=== PATIENT | male | born 1960 | race Two or more races ===

== ENCOUNTER 2016-10-27 11:38 | Inpatient (IN) | payer MEDICARE, MEDICAID ==
[~2016-10-27] VITALS: Ht 167.6 cm; Wt 83.0 kg
[~2016-10-27 11:38] MED LIST: CEPH-570 PO; CLON2TAB4 PO; IBUP-1955 PO; LACT1CAP72 PO; LEVE250T2 PO; LISI-603 PO; Naproxen PO
[2016-10-27 11:57] LABS: BASOPHILS # (AUTO) 0.1 /CMM (0.0-0.2); BASOPHILS % (AUTO) 0.7 % (0.0-2.0); DIFF TOTAL % 100 %; EOSINOPHILS # (AUTO) 0.2 /CMM (0.0-0.7); EOSINOPHILS % (AUTO) 2.4 % (0.0-6.0); HEMATOCRIT 45 % (39-51); HEMOGLOBIN 14.4 g/dL (13.5-17.5); LYMPHOCYTES # (AUTO) 2.2 /CMM (0.8-4.8); MEAN CORPUSCULAR HEMOGLOBIN 29 PG (26.0-33.0); MEAN CORPUSCULAR HGB CONC 32 g/dl (31.0-36.0); MEAN CORPUSCULAR VOLUME 90 fL (80-96); MONOCYTES # (AUTO) 0.4 /CMM (0.1-1.30); MONOCYTES % (AUTO) 5.5 % (2.0-12.0); NEUTROPHILS # (AUTO) 4.4 /CMM (1.8-8.9); NEUTROPHILS % (AUTO) 61.4 % (43.0-81.0); PLATELET COUNT (AUTO) 265 /CMM (150-450); RED BLOOD CELL COUNT(AUTO) 5.03 MIL/uL (4.5-6.0); WHITE BLOOD COUNT (AUTO) 7.3 K/uL (4.3-11.0)
[2016-10-27] MEDS ORDERED: IV NS 0.9% 500 ML BAG IV ONE (12:00)
[2016-10-27] MEDS ORDERED: IV NS 0.9% 500 ML IV ONE (12:04)
[2016-10-27] MEDS ORDERED: IV SET PRIMARY 1 EA INFUS.SET MC ONE (12:04)
[2016-10-27 12:09] LABS: ANION GAP 14 (5-14); CARBON DIOXIDE 26 mmol/L (21-32); CHLORIDE 105 mmol/L (98-107); CREATININE 1.1 mg/dL (0.6-1.3); GFR 69 mL/min (>60); GLUCOSE 111 mg/dL (74-106); SODIUM SERUM 141 mmol/L (136-145); UREA NITROGEN, BLOOD 17 mg/dL (7-18)
[2016-10-27 12:12] LABS: INR 0.93 (0.87-1.13); PROTHROMBIN TIME 9.8 SECS (9.5-12.7)
[2016-10-27 12:17] LABS: TROPONIN I < 0.017 ng/mL (0.00-0.056)
[2016-10-27] MEDS ORDERED: CITA40TA22 PO (12:24)
[2016-10-27] MEDS ORDERED: LISI-657 PO (12:24)
[2016-10-27] MEDS ORDERED: HYDR-552 PO (12:26)
[2016-10-27] MEDS ORDERED: ASPIRIN 325 MG TABLET ONE (13:15)
[2016-10-27] MEDS ORDERED: ASPIRIN 325 MG TABLET PO SCH (13:30)
[2016-10-27] MEDS ORDERED: HYDROCODONE/APAP 5/325MG 1 EACH TABLET PO PRN (14:00)
[2016-10-27] MEDS ORDERED: ZOLPIDEM TARTRATE 5 MG TABLET PO PRN (14:00)
[2016-10-27] MEDS ORDERED: ONDANSETRON HCL/PF 4 MG/2 ML VIAL IVP PRN (14:00)
[2016-10-27] MEDS ORDERED: ACETAMINOPHEN 325 MG TABLET PO PRN (14:00)
[2016-10-27] MEDS ORDERED: MAG HYDROX/AL HYDROX/SIMETH 30 ML UDC PO PRN (14:00)
[2016-10-27] MEDS ORDERED: MAGNESIUM HYDROXIDE 30 ML UDC PO PRN (14:00)
[2016-10-27] MEDS ORDERED: Z GUARD REMEDY 2 OZ OINT TP PRN (14:00)
[2016-10-27] MEDS ORDERED: IV SET PRIMARY PUMP SET 1 EA INFUS.SET MC ONE (14:23)
[2016-10-27] MEDS: IV NS 0.9% 1,000 ML IV PRN (14:29)
[2016-10-27 14:30] VITALS: BP 133/85
[2016-10-27] MEDS: ENOXAPARIN SODIUM 40 MG/0.4 ML DISP.SYRIN SQ SCH (14:38)
[2016-10-27 16:00] VITALS: BP 137/76
[2016-10-27] MEDS: LISINOPRIL (10MG) 10 MG TABLET PO SCH (16:23)
[2016-10-27] MEDS: clonazePAM 1 MG TABLET PO SCH (16:23)
[2016-10-27 20:00] VITALS: BP 104/68
[2016-10-27 20:29] VITALS: BP 104/68
[2016-10-27] MEDS: LEVETIRACETAM (250 MG) 250 MG TABLET PO SCH (20:57)
[2016-10-28] VITALS: BP 105/65
[2016-10-28 04:00] VITALS: BP 110/65
[2016-10-28 06:53] VITALS: BP 107/62
[2016-10-28 06:54] LABS: BASOPHILS % (AUTO) 0.7 % (0.0-2.0); DIFF TOTAL % 100 %; EOSINOPHILS # (AUTO) 0.2 /CMM (0.0-0.7); HEMATOCRIT 38 % (39-51); LYMPHOCYTES # (AUTO) 2.6 /CMM (0.8-4.8); LYMPHOCYTES % (AUTO) 45.5 % (20.0-44.0); MEAN CORPUSCULAR HEMOGLOBIN 30 PG (26.0-33.0); MEAN CORPUSCULAR HGB CONC 34 g/dl (31.0-36.0); MEAN CORPUSCULAR VOLUME 88 fL (80-96); MONOCYTES # (AUTO) 0.4 /CMM (0.1-1.30); MONOCYTES % (AUTO) 7.3 % (2.0-12.0); NEUTROPHILS # (AUTO) 2.5 /CMM (1.8-8.9); NEUTROPHILS % (AUTO) 42.5 % (43.0-81.0); PLATELET COUNT (AUTO) 206 /CMM (150-450); RED BLOOD CELL COUNT(AUTO) 4.35 MIL/uL (4.5-6.0); WHITE BLOOD COUNT (AUTO) 5.8 K/uL (4.3-11.0)
[2016-10-28 07:09] LABS: TROPONIN I < 0.017 ng/mL (0.00-0.056)
[2016-10-28 07:12] LABS: ANION GAP 11 (5-14); CALCIUM, SERUM 8.1 mg/dL (8.5-10.1); CARBON DIOXIDE 27 mmol/L (21-32); CHLORIDE 105 mmol/L (98-107); CREATININE 1.1 mg/dL (0.6-1.3); GFR 69 mL/min (>60); GLUCOSE 94 mg/dL (74-106); PHOSPHORUS 3.6 mg/dL (2.5-4.9); POTASSIUM 4.1 mmol/L (3.5-5.1); SODIUM SERUM 139 mmol/L (136-145); UREA NITROGEN, BLOOD 21 mg/dL (7-18)
[2016-10-28 08:00] VITALS: BP 104/69
[2016-10-28] MEDS: clonazePAM 1 MG TABLET PO SCH ×2 (08:37→16:23)
[2016-10-28] MEDS: LEVETIRACETAM (250 MG) 250 MG TABLET PO SCH ×2 (08:37→21:55)
[2016-10-28] MEDS: PANTOPRAZOLE 40 MG TABLET.DR PO SCH (08:37)
[2016-10-28] MEDS: ATORVASTATIN 10 MG TABLET PO SCH (08:38)
[2016-10-28] MEDS: ASPIRIN 81 MG TAB.CHEW PO SCH (08:38)
[2016-10-28] MEDS: ENOXAPARIN SODIUM 40 MG/0.4 ML DISP.SYRIN SQ SCH (08:38)
[2016-10-28] MEDS: LACTOBACILLUS RHAMNOSUS GG 1 EACH CAP.SPRINK PO SCH (08:39)
[2016-10-28] MEDS: CARVEDILOL 6.25 MG TABLET PO SCH ×2 (08:39→21:56)
[2016-10-28] MEDS: CITALOPRAM HYDROBROMIDE 20 MG TABLET PO SCH (08:39)
[2016-10-28] MEDS: LISINOPRIL (10MG) 10 MG TABLET PO SCH ×2 (08:40→16:24)
[2016-10-28 10:01] LABS: CHOLESTEROL 192 mg/dL (<200); HDL CHOLESTEROL 42 mg/dL (40-60); LDL 107 mg/dL (0-99); TRIGLYCERIDES 366 mg/dL (30-150)
[2016-10-28 16:00] VITALS: BP 109/70
[2016-10-28] MEDS: IV NS 0.9% 1,000 ML IV PRN (19:14)
[2016-10-28 20:00] VITALS: BP 129/76
[2016-10-29] MEDS: PANTOPRAZOLE 40 MG TABLET.DR PO SCH (07:30)
[2016-10-29 07:55] LABS: CALCIUM, SERUM 8.9 mg/dL (8.5-10.1); PHOSPHORUS 3.2 mg/dL (2.5-4.9); POTASSIUM 4.3 mmol/L (3.5-5.1)
[2016-10-29 08:00] VITALS: BP 119/71
[2016-10-29 08:02] LABS: BASOPHILS % (AUTO) 0.5 % (0.0-2.0); DIFF TOTAL % 100 %; EOSINOPHILS # (AUTO) 0.3 /CMM (0.0-0.7); EOSINOPHILS % (AUTO) 4.5 % (0.0-6.0); HEMATOCRIT 42 % (39-51); HEMOGLOBIN 14.3 g/dL (13.5-17.5); LYMPHOCYTES % (AUTO) 35.2 % (20.0-44.0); MEAN CORPUSCULAR HEMOGLOBIN 30 PG (26.0-33.0); MEAN CORPUSCULAR HGB CONC 34 g/dl (31.0-36.0); MEAN CORPUSCULAR VOLUME 88 fL (80-96); MONOCYTES # (AUTO) 0.5 /CMM (0.1-1.30); MONOCYTES % (AUTO) 8.9 % (2.0-12.0); NEUTROPHILS % (AUTO) 50.9 % (43.0-81.0); PLATELET COUNT (AUTO) 216 /CMM (150-450); RED BLOOD CELL COUNT(AUTO) 4.79 MIL/uL (4.5-6.0); WHITE BLOOD COUNT (AUTO) 5.8 K/uL (4.3-11.0)
[2016-10-29] MEDS ORDERED: REGADENOSON 0.4 MG/5 ML DISP.SYRIN IVP ONE (09:00)
[2016-10-29] MEDS: clonazePAM 1 MG TABLET PO SCH ×2 (10:18→17:22)
[2016-10-29] MEDS: CITALOPRAM HYDROBROMIDE 20 MG TABLET PO SCH (10:18)
[2016-10-29] MEDS: ATORVASTATIN 10 MG TABLET PO SCH (10:18)
[2016-10-29] MEDS: LISINOPRIL (10MG) 10 MG TABLET PO SCH ×2 (10:19→17:22)
[2016-10-29] MEDS: LACTOBACILLUS RHAMNOSUS GG 1 EACH CAP.SPRINK PO SCH (10:19)
[2016-10-29] MEDS: ASPIRIN 81 MG TAB.CHEW PO SCH (10:19)
[2016-10-29] MEDS: LEVETIRACETAM (250 MG) 250 MG TABLET PO SCH ×2 (10:19→21:51)
[2016-10-29] MEDS: CARVEDILOL 6.25 MG TABLET PO SCH ×2 (10:20→21:51)
[2016-10-29] MEDS: ENOXAPARIN SODIUM 40 MG/0.4 ML DISP.SYRIN SQ SCH (10:21)
[2016-10-29 16:07] VITALS: BP 115/59
[2016-10-29 18:00] VITALS: BP 115/59
[2016-10-29 20:00] VITALS: BP 100/56
[2016-10-30 08:00] VITALS: BP 113/73
[2016-10-30] MEDS: ATORVASTATIN 10 MG TABLET PO SCH (09:00)
[2016-10-30] MEDS: ENOXAPARIN SODIUM 40 MG/0.4 ML DISP.SYRIN SQ SCH (10:08)
[2016-10-30] MEDS: CARVEDILOL 6.25 MG TABLET PO SCH (10:14)
[2016-10-30] MEDS: LACTOBACILLUS RHAMNOSUS GG 1 EACH CAP.SPRINK PO SCH (10:15)
[2016-10-30] MEDS: ASPIRIN 81 MG TAB.CHEW PO SCH (10:15)
[2016-10-30 10:16] VITALS: BP 113/74
[2016-10-30] MEDS: CITALOPRAM HYDROBROMIDE 20 MG TABLET PO SCH (10:16)
[2016-10-30] MEDS: LISINOPRIL (10MG) 10 MG TABLET PO SCH (10:16)
[2016-10-30] MEDS: clonazePAM 1 MG TABLET PO SCH (10:17)
[2016-10-30] MEDS: LEVETIRACETAM (250 MG) 250 MG TABLET PO SCH (10:18)
[2016-10-30] MEDS: PANTOPRAZOLE 40 MG TABLET.DR PO SCH (10:19)
[2016-10-30] MEDS ORDERED: MAGN400O6 PO (13:57)
[2016-10-30] MEDS ORDERED: MAG30ORA PO (13:57)
[2016-10-30] MEDS ORDERED: PANT40TA4 PO (13:57)
[2016-10-30] MEDS ORDERED: LACT1CAP72 PO (13:57)
[2016-10-30] MEDS ORDERED: ASPI81TA2 PO (13:57)
[2016-10-30] MEDS ORDERED: ZOLP5TAB7 PO (13:57)
[2016-10-30] MEDS ORDERED: CLON2TAB4 PO (13:57)
[2016-10-30] MEDS ORDERED: CARV6.252 PO (13:57)
[2016-10-30] MEDS ORDERED: ALLA266C2 TP (13:57)
[2016-10-30] MEDS ORDERED: ATOR10TA PO (13:57)
[2016-10-30] MEDS ORDERED: ACET-868 PO (13:57)
[2016-10-30] MEDS ORDERED: LEVE250T2 PO (13:57)
== END 2016-10-30 13:21 | DRG 206 ==
LOC: ER 11:41 → TELE 13:05 → MED 10-28 12:00
PROVIDERS: ADMIT Internal Medicine; ATTEND Internal Medicine
DX: M94.0 Chondrocostal junction syndrome [Tietze] (principal); R07.9 Chest pain, unspecified; E78.5 Hyperlipidemia, unspecified; G40.909 Epilepsy, unspecified, not intractable, without status epilepticus; F32.9 Major depressive disorder, single episode, unspecified; I10 Essential (primary) hypertension; M19.90 Unspecified osteoarthritis, unspecified site; K21.9 Gastro-esophageal reflux disease without esophagitis; F41.9 Anxiety disorder, unspecified; F41.1 Generalized anxiety disorder; F10.20 Alcohol dependence, uncomplicated
CPT/HCPCS: 36415; 70450-TC; 71010-TC; 80048-TC; 80061-TC; 83735-TC; 84100-TC; 84484-TC; 85025-TC; 85730-TC; 87081-TC; 87400; 93307-TC; 97001-TC; A4606; A9502; J1650; J2785; J7030; J7040; Z7610

== ENCOUNTER 2016-10-30 13:48 | Inpatient (IN) | payer MEDICARE, MEDICAID ==
[~2016-10-30] VITALS: Ht 165.1 cm; Wt 82.6 kg
[~2016-10-30 13:48] MED LIST changes: -CEPH-570 PO; +CITA40TA22 PO; +HYDR-552 PO; -LISI-603 PO; +LISI-657 PO; -Naproxen PO
[2016-10-30] MEDS ORDERED: MAGN400O6 PO (13:57)
[2016-10-30] MEDS ORDERED: LEVE250T2 PO (13:57)
[2016-10-30] MEDS ORDERED: PANT40TA4 PO (13:57)
[2016-10-30] MEDS ORDERED: LACT1CAP72 PO (13:57)
[2016-10-30] MEDS ORDERED: ATOR10TA PO (13:57)
[2016-10-30] MEDS ORDERED: ALLA266C2 TP (13:57)
[2016-10-30] MEDS ORDERED: CLON2TAB4 PO (13:57)
[2016-10-30] MEDS ORDERED: CARV6.252 PO (13:57)
[2016-10-30] MEDS ORDERED: ACET-868 PO (13:57)
[2016-10-30] MEDS ORDERED: MAG30ORA PO (13:57)
[2016-10-30] MEDS ORDERED: ZOLP5TAB7 PO (13:57)
[2016-10-30] MEDS ORDERED: ASPI81TA2 PO (13:57)
[2016-10-30] MEDS ORDERED: LORAZEPAM 0.5 MG TABLET PO PRN (14:30)
[2016-10-30] MEDS ORDERED: ZOLPIDEM TARTRATE 5 MG TABLET PO PRN (14:30)
[2016-10-30] MEDS ORDERED: MAGNESIUM HYDROXIDE 30 ML UDC PO PRN ×2 (14:30→20:00)
[2016-10-30] MEDS ORDERED: ACETAMINOPHEN 325 MG TABLET PO PRN ×2 (14:30→20:00)
[2016-10-30] MEDS ORDERED: MAG HYDROX/AL HYDROX/SIMETH 30 ML UDC PO PRN ×2 (14:30→20:00)
[2016-10-30 16:00] VITALS: BP 110/64
[2016-10-30] MEDS ORDERED: HYDROCODONE/APAP 5/325MG 1 EACH TABLET PO PRN (20:00)
[2016-10-30] MEDS: ATORVASTATIN 10 MG TABLET PO SCH (20:00)
[2016-10-30] MEDS ORDERED: Z GUARD REMEDY 2 OZ OINT TP PRN (20:00)
[2016-10-30] MEDS ORDERED: IBUPROFEN 600 MG TABLET PO SCH (20:00)
[2016-10-30] MEDS: ASPIRIN 81 MG TAB.CHEW PO SCH (20:00)
[2016-10-30] MEDS: LACTOBACILLUS RHAMNOSUS GG 1 EACH CAP.SPRINK PO SCH (20:00)
[2016-10-30] MEDS: CARVEDILOL 6.25 MG TABLET PO SCH (21:00)
[2016-10-30] MEDS: LEVETIRACETAM (250 MG) 250 MG TABLET PO SCH (21:15)
[2016-10-30 23:45] VITALS: BP 99/57
[2016-10-31 07:55] LABS: ALBUMIN 3.5 g/dL (3.4-5.0); BILIRUBIN,TOTAL 0.5 mg/dL (0.2-1.0); CALCIUM, SERUM 8.8 mg/dL (8.5-10.1); CREATININE 1.2 mg/dL (0.6-1.3); POTASSIUM 4.1 mmol/L (3.5-5.1); TOTAL PROTEIN, SERUM 7.4 g/dL (6.4-8.2)
[2016-10-31 08:00] VITALS: BP 122/76
[2016-10-31] MEDS: PANTOPRAZOLE 40 MG TABLET.DR PO SCH (08:01)
[2016-10-31 08:13] LABS: CHOLESTEROL 247 mg/dL (<200); HDL CHOLESTEROL 49 mg/dL (40-60); LDL 150 mg/dL (0-99); TRIGLYCERIDES 276 mg/dL (30-150)
[2016-10-31] MEDS: CARVEDILOL 6.25 MG TABLET PO SCH ×2 (08:13→21:36)
[2016-10-31] MEDS: LACTOBACILLUS RHAMNOSUS GG 1 EACH CAP.SPRINK PO SCH (08:13)
[2016-10-31] MEDS: ATORVASTATIN 10 MG TABLET PO SCH (08:14)
[2016-10-31] MEDS: LISINOPRIL (10MG) 10 MG TABLET PO SCH ×2 (08:14→16:37)
[2016-10-31] MEDS: LEVETIRACETAM (250 MG) 250 MG TABLET PO SCH ×2 (08:14→21:37)
[2016-10-31] MEDS: ASPIRIN 81 MG TAB.CHEW PO SCH (08:14)
[2016-10-31] MEDS: DULOXETINE HCL 30 MG CAPSULE.DR PO SCH (12:09)
[2016-10-31 15:52] VITALS: BP 111/61
[2016-10-31] MEDS: HYDROCODONE/APAP 5/325MG 1 EACH TABLET PO PRN (16:36)
[2016-10-31 20:00] VITALS: BP 105/62
[2016-10-31] MEDS ORDERED: QUETIAPINE FUMARATE 100 MG TABLET PO SCH (22:00)
[2016-11-01] MEDS: ASPIRIN 81 MG TAB.CHEW PO SCH (08:36)
[2016-11-01] MEDS: LEVETIRACETAM (250 MG) 250 MG TABLET PO SCH ×2 (08:36→21:33)
[2016-11-01] MEDS: ATORVASTATIN 10 MG TABLET PO SCH (08:36)
[2016-11-01] MEDS: LACTOBACILLUS RHAMNOSUS GG 1 EACH CAP.SPRINK PO SCH (08:36)
[2016-11-01] MEDS: PANTOPRAZOLE 40 MG TABLET.DR PO SCH (08:36)
[2016-11-01] MEDS: DULOXETINE HCL 30 MG CAPSULE.DR PO SCH (08:36)
[2016-11-01] MEDS: CARVEDILOL 6.25 MG TABLET PO SCH ×2 (08:37→21:33)
[2016-11-01] MEDS: LISINOPRIL (10MG) 10 MG TABLET PO SCH ×2 (08:37→16:11)
[2016-11-01 08:56] VITALS: BP 100/60
[2016-11-01] MEDS ORDERED: MECLIZINE HCL 12.5 MG TABLET PO PRN (10:30)
[2016-11-01] MEDS ORDERED: diphenhydrAMINE HCL 50 MG CAPSULE PO PRN (11:00)
[2016-11-01] MEDS: ARIPIPRAZOLE 5 MG TABLET PO SCH (11:19)
[2016-11-01 17:22] VITALS: BP 117/72
[2016-11-01 19:56] VITALS: BP 126/74
[2016-11-01] MEDS: HYDROCODONE/APAP 5/325MG 1 EACH TABLET PO PRN (20:21)
[2016-11-02] MEDS: HYDROCODONE/APAP 5/325MG 1 EACH TABLET PO PRN ×3 (04:39→22:09)
[2016-11-02 08:00] VITALS: BP 120/70
[2016-11-02] MEDS: ASPIRIN 81 MG TAB.CHEW PO SCH (08:42)
[2016-11-02] MEDS: LACTOBACILLUS RHAMNOSUS GG 1 EACH CAP.SPRINK PO SCH (08:42)
[2016-11-02] MEDS: ARIPIPRAZOLE 5 MG TABLET PO SCH (08:42)
[2016-11-02] MEDS: DULOXETINE HCL 30 MG CAPSULE.DR PO SCH (08:42)
[2016-11-02] MEDS: CARVEDILOL 6.25 MG TABLET PO SCH ×2 (08:43→20:49)
[2016-11-02] MEDS: LISINOPRIL (10MG) 10 MG TABLET PO SCH ×2 (08:43→16:47)
[2016-11-02] MEDS: PANTOPRAZOLE 40 MG TABLET.DR PO SCH (08:43)
[2016-11-02] MEDS: LEVETIRACETAM (250 MG) 250 MG TABLET PO SCH ×2 (08:43→20:50)
[2016-11-02] MEDS: ATORVASTATIN 10 MG TABLET PO SCH (08:43)
[2016-11-02 15:57] VITALS: BP 103/73
[2016-11-02 16:00] VITALS: BP 103/73
[2016-11-02 19:48] VITALS: BP 124/73
[2016-11-03] MEDS: HYDROCODONE/APAP 5/325MG 1 EACH TABLET PO PRN ×2 (06:25→18:04)
[2016-11-03] MEDS: LACTOBACILLUS RHAMNOSUS GG 1 EACH CAP.SPRINK PO SCH (08:26)
[2016-11-03] MEDS: DULOXETINE HCL 30 MG CAPSULE.DR PO SCH (08:26)
[2016-11-03] MEDS: PANTOPRAZOLE 40 MG TABLET.DR PO SCH (08:26)
[2016-11-03] MEDS: ARIPIPRAZOLE 5 MG TABLET PO SCH (08:26)
[2016-11-03] MEDS: LEVETIRACETAM (250 MG) 250 MG TABLET PO SCH ×2 (08:27→21:30)
[2016-11-03] MEDS: ATORVASTATIN 10 MG TABLET PO SCH (08:27)
[2016-11-03] MEDS: ASPIRIN 81 MG TAB.CHEW PO SCH (08:27)
[2016-11-03 08:29] VITALS: BP 119/84
[2016-11-03] MEDS: LISINOPRIL (10MG) 10 MG TABLET PO SCH ×2 (08:31→17:00)
[2016-11-03] MEDS: CARVEDILOL 6.25 MG TABLET PO SCH ×2 (08:31→21:29)
[2016-11-03 16:00] VITALS: BP 109/62
[2016-11-03 20:43] VITALS: BP 123/65
[2016-11-04] MEDS: PANTOPRAZOLE 40 MG TABLET.DR PO SCH (08:21)
[2016-11-04] MEDS: LISINOPRIL (10MG) 10 MG TABLET PO SCH ×2 (08:22→18:20)
[2016-11-04] MEDS: ARIPIPRAZOLE 5 MG TABLET PO SCH (08:22)
[2016-11-04] MEDS: DULOXETINE HCL 30 MG CAPSULE.DR PO SCH (08:22)
[2016-11-04] MEDS: ASPIRIN 81 MG TAB.CHEW PO SCH (08:22)
[2016-11-04] MEDS: ATORVASTATIN 10 MG TABLET PO SCH (08:22)
[2016-11-04] MEDS: LACTOBACILLUS RHAMNOSUS GG 1 EACH CAP.SPRINK PO SCH (08:22)
[2016-11-04] MEDS: LEVETIRACETAM (250 MG) 250 MG TABLET PO SCH ×2 (08:22→21:00)
[2016-11-04] MEDS: CARVEDILOL 6.25 MG TABLET PO SCH ×2 (08:23→22:27)
[2016-11-04 08:28] VITALS: BP 152/94
[2016-11-04 16:26] VITALS: BP 130/83
[2016-11-04] MEDS: HYDROCODONE/APAP 5/325MG 1 EACH TABLET PO PRN (18:19)
[2016-11-04 19:59] VITALS: BP 134/89
[2016-11-05 08:00] VITALS: BP 131/86
[2016-11-05] MEDS: DULOXETINE HCL 30 MG CAPSULE.DR PO SCH (08:10)
[2016-11-05] MEDS: PANTOPRAZOLE 40 MG TABLET.DR PO SCH (08:10)
[2016-11-05] MEDS: LACTOBACILLUS RHAMNOSUS GG 1 EACH CAP.SPRINK PO SCH (08:10)
[2016-11-05] MEDS: ARIPIPRAZOLE 5 MG TABLET PO SCH (08:10)
[2016-11-05] MEDS: ATORVASTATIN 10 MG TABLET PO SCH (08:11)
[2016-11-05] MEDS: LISINOPRIL (10MG) 10 MG TABLET PO SCH (08:11)
[2016-11-05] MEDS: ASPIRIN 81 MG TAB.CHEW PO SCH (08:11)
[2016-11-05] MEDS: LEVETIRACETAM (250 MG) 250 MG TABLET PO SCH (08:11)
[2016-11-05 08:12] VITALS: BP 131/86
[2016-11-05] MEDS: CARVEDILOL 6.25 MG TABLET PO SCH (08:12)
== END 2016-11-05 15:09 | DRG 885 ==
LOC: GPS 13:48
PROVIDERS: ADMIT Psychiatry & Neurology Psychiatry; ATTEND Internal Medicine
DX: F33.3 Major depressive disorder, recurrent, severe with psychotic symptoms (principal); E78.5 Hyperlipidemia, unspecified; F41.8 Other specified anxiety disorders; I10 Essential (primary) hypertension; K21.9 Gastro-esophageal reflux disease without esophagitis; F10.10 Alcohol abuse, uncomplicated; R07.9 Chest pain, unspecified; F41.1 Generalized anxiety disorder; G40.909 Epilepsy, unspecified, not intractable, without status epilepticus; Z59.0 Homelessness
CPT/HCPCS: 36415; 80048-TC; 80053-TC; 80061-TC; 87081-TC; Q0163